=== PATIENT | female | born 1965 | race Asian ===

== ENCOUNTER 2022-12-21 19:21 | Emergency (ER) | payer OTHER ==
[~2022-12-21] VITALS: Ht 152.4 cm; Wt 68.2 kg
[2022-12-21 19:54] VITALS: BP 158/77
[2022-12-21] MEDS ORDERED: LIDOCAINE 5% TRANSDERMAL PATCH TD ONE (21:45)
[2022-12-21] MEDS ORDERED: ACETAMINOPHEN 500 MG TABLET PO ONE (21:45)
[2022-12-21] MEDS ORDERED: LIDO700A15 TP (21:55)
[2022-12-21] MEDS ORDERED: ACET-3385 PO (21:56)
== END 2022-12-21 22:27 | disposition home or self-care (01) ==
LOC: EMS 19:24
DX: S20.211A Contusion of right front wall of thorax, initial encounter (principal); I10 Essential (primary) hypertension; Y04.0XXA Assault by unarmed brawl or fight, initial encounter; Y93.89 Activity, other specified; Y92.89 Other specified places as the place of occurrence of the external cause; Y99.0 Civilian activity done for income or pay
CPT/HCPCS: 71046; 99283